=== PATIENT | male | born 1965 | race Caucasian/White ===

== ENCOUNTER 2024-10-31 11:54 | Emergency (ER) | payer OTHER, SELFPAY ==
[2024-10-31 12:06] VITALS: BP 153/74; PULSE 32; RESP 16; TEMP 36.6; O2SAT 100
--- NOTE | 2024-10-31 12:11 | ECG_ITS ---
Test Date: 2024-10-31 12:19:10 Measurements Intervals Philipp Rate: 36 P: 0 CT: 0 QRS: -68 QRSD: 182 T: 4 QT: 478 QTc: 374 Interpretive Statements SINUS BRADYCARDIA WITH 2ND DEGREE AV BLOCK, MOBITZ TYPE II RIGHT BUNDLE BRANCH BLOCK [120+ ms QRS DURATION, UPRIGHT V1, 40+ ms S IN I/aVL/V4/V5/V6] LEFT ANTERIOR FASCICULAR BLOCK [QRS AXIS <= -45, QR IN I, RS IN II] POSSIBLE SEPTAL MYOCARDIAL INFARCTION [30 ms Q WAVE IN V1/V2], OF INDETERMINATE AGE MARKED T-WAVE ABNORMALITY, CONSIDER ANTEROLATERAL ISCHEMIA [-0.5+ mV T WAVE IN I/aVL/V3-V6] WARNING: DATA QUALITY MAY AFFECT INTERPRETATION No previous ECG available for comparison Electronically Signed On 10-31-2024 19:00:30 WEIGHT CALLER by Cain Perez
--- NOTE | 2024-10-31 12:16 | ED.URI ---
HPI - URI/Sore Throat General Stated Complaint: Cough/Congestion Source: patient Mode of arrival: ambulatory Limitations: no limitations History of Present Illness HPI Narrative: 59-year-old male presented for complaint of sore throat, nasal congestion and cough for over 2 weeks. During triage he was noted to have a heart rate of 32. He states he has a history of a bundle branch block. Reports some fatigue. Has started atorvastatin and Synjardy in the last 6 months. He was aware of a heart rate in the 30s based on his home blood pressure machine, but did not contact the PCP. Denies chest pain, dizziness, lethargy, nausea, vomiting or diaphoresis. Related Data Allergies Allergy/AdvReac Type Severity Reaction Status Date / Time No Known Allergies Allergy Mild Verified 02/28/11 12:04 Review of Systems Review of Systems: CONSTITUTIONAL: Denies body aches, fever, chills, or sweats. EYES: Denies visual changes, redness, or discharge. ENT: reports rhinorrhea, congestion, denies sore throat, or otalgia. CARDIOVASCULAR: Denies chest pain, palpitations, or edema. RESPIRATORY: Reports cough Denies dyspnea. GASTROINTESTINAL: Denies abdominal pain, nausea, vomiting, or diarrhea. SKIN: Denies rash MUSCULOSKELETAL: Denies back pain, joint pain, or myalgia. NEUROLOGIC: Denies headache, numbness, tingling, or weakness. PSYCH: Denies depression or anxiety. All systems reviewed & are unremarkable except as noted in HPI and below PMFSH Past Medical History Medical History Diabetes Comments At time of signature, I have reviewed and agree with nursing past medical, surgical, social and family history unless otherwise noted. Please see nursing chart for further information. There is no relevant family history pertinent to the presenting complaint Exam Narrative: GENERAL: Well-appearing EYES: EOMI. No redness or drainage. Conjunctivae normal. ENT: Mucous membranes pink and moist. CHEST: No respiratory distress. Clear to auscultation. HEART: bradycardic, regular. No murmur appreciated. EXTREMITIES: Normal range of motion. No edema. SKIN: Warm, dry, no rash. Capillary refill normal. Normal skin turgor. NEURO: No focal deficits. Alert and oriented x3. Gait steady. PSYCH: Normal affect. Course Course Emergency Course: Patient is aware of diagnosis, understands and agrees to treatment plan. Anticipatory guidance given. Patient agrees to follow-up as directed and is aware of reasons to seek care at the emergency department. Portions of this record may have been created with voice recognition software Level of Care: Express Care Visit Vital Signs Vital signs: Vital Signs Temperature 98 F 10/31/24 12:06 Pulse Rate 32 L 10/31/24 12:06 Respiratory Rate 16 10/31/24 12:06 Blood Pressure 153/74 H 10/31/24 12:06 Pulse Oximetry 100 10/31/24 12:06 Oxygen Delivery Room Air 10/31/24 12:06 Temperature 98 F 10/31/24 12:06 Pulse Rate 32 L 10/31/24 12:06 Respiratory Rate 16 10/31/24 12:06 Blood Pressure 153/74 H 10/31/24 12:06 Pulse Oximetry 100 10/31/24 12:06 Oxygen Delivery Room Air 10/31/24 12:06 MDM - URI/Sore Throat MDM Narrative Medical decision making narrative: discussed EKG with patient, advised ER transfer. Requests [facility]. Differential Diagnosis Differential diagnosis: Likely other (STEMI, AAA, PE, pneumothorax, cardiac tamponade, esophageal rupture, pneumonia, GERD, musculoskeletal pain, endocarditis, pericarditis, medication induced bradycardia. ) ECG Data EKG #1: Attestation: I personally reviewed and interpreted this ECG as follows: (SB 36; 2nd degree Type 2 heart block ) ECG completion date: 10/31/24 ECG completion time: 12:19 Prior ECG tracings: not available for review EKG Interpretation: bradycardia (2nd degree block) Discharge Plan Discharge Clinical Impression: Bradycardia Patient Disposition: Acute Care Hospital Condition: Stable Patient Language: Martiniquais Follow-up/Referrals: PHYSICIAN NOT ON STAFF,NONSTAFF [Primary Care Provider] - Time of Disposition: 12:37
== END 2024-10-31 12:40 | disposition short-term general hospital (02) ==
PROVIDERS: Emergency Provider Nurse Practitioner Family
DX: R00.1 Bradycardia, unspecified (principal); E11.9 Type 2 diabetes mellitus without complications
CPT/HCPCS: 93005; 99202; 99203; G0463

== ENCOUNTER → 2025-04-23 15:19 | Outpatient (REF) | payer OTHER, SELFPAY ==
--- NOTE | 2025-04-23 15:19 | S_PTH ---
PATIENT: Brenden Romo LOC: [facility] U#:[id number] AGE/SX: 60/M ROOM: RE04/23/[address]: Pati Payne MD : [id number] BED: DIS: SPEC #: [id number] RECD: 04/24/25 06:56 STATUS: JACK WANG #: [id number] YAMINI: 04/23/25 15:[address]: Pati Payne DEPT: [facility] Surgical RECD BY: Wilda Chapman ENTERED: 04/24/25 06:56 SP TYPE: Surgical OTHR DR: PHYSICIAN NOT ON STAFF Tissues: A - Cyst Procedures: Hematoxylin and Eosin Stain Gross and Microscopic Level 4
--- OUTSIDE RECORDS SUMMARY | 2025-04-23 15:21 | XMS_ITS ---
Author Organization [facility] Address [address] [place] [address] Care Team Providers Care Seed Pot[employer] Arranger Name Role Phone Leonel Magaña NP Primary Care Provider [phone] [place] Catherine Unavailable [phone] Active Problems Problem Noted Date Diagnosed Date Second-degree heart block 03/06/2025 Assessment & Plan (03/06/2025 3:59 PM CDT): -Symptomatic 2:1 AV block s/p [employer]onic dual chamber pacemaker 11/12/2024 -Pacemaker dependent, UNDERGROUND MINER 100%, normal LVEF 10/2024. NYHA class I symptoms. Pacemaker 03/06/2025 Assessment & Plan (03/06/2025 3:59 PM CDT): -Dual chamber pacemaker is functioning appropriately as programmed -Lead impedances, sensing, and thresholds are stable -No programming changes -Continue remote monitoring quarterly -Follow up in 1 year for device check Chest pain, unspecified type 11/06/2024 DM type 2 with diabetic mixed hyperlipidemia Mixed hyperlipidemia 05/04/2024 Complex tear of medial meniscus of left knee Post-surgical hypothyroidism 11/12/2019 Assessment & Plan (02/07/2023 12:40 PM CDT): Continue levothyroxine 200mcgs daily Repeat TSH, FT4 and BMP today Assessment & Plan (01/20/2021 2:21 PM DIRECTOR OF DISTRICT OFFICE): Continue current levothyroxine dose. Will check thyroid function test and adjust levothyroxine dose accordingly. TSH goal lower normal Assessment & Plan (11/12/2019 10:19 AM DIRECTOR OF DISTRICT OFFICE): Continue current levothyroxine dose. Will check thyroid function test and adjust levothyroxine dose accordingly. TSH goal lower normal History of thyroid cancer 10/09/2018 Assessment & Plan (02/07/2023 12:41 PM CDT): Repeat TG today Repeat neck imaging in 2-3 years (last in 2019) Assessment & Plan (01/20/2021 2:21 PM DIRECTOR OF DISTRICT OFFICE): No evidence of tumor recurrence on biochemical and radiological data so far Will plan follow-up with thyroid function test with a TSH goal lower normal. Biochemical evaluation with thyroid tumor markers. neck ultrasound extended/as needed If above are in acceptable range, will plan follow-up on yearly basis Assessment & Plan (11/12/2019 10:19 AM DIRECTOR OF DISTRICT OFFICE): No evidence of tumor recurrence on biochemical and radiological data so far followed by radiation oncology. Will plan follow-up with thyroid function test with a TSH goal lower normal. Biochemical evaluation with thyroid tumor markers. We will also obtain neck ultrasound for evaluation of the neck. If above are in acceptable range, will plan follow-up on yearly basis Malignant neoplasm of thyroid gland 10/05/2010 Current Treatment and Therapy Plans No current plan information found. Past Treatment and Therapy Plans No past plan information found. Lifetime Dose Tracking * Chemical Lifetime Dose Automatic Entry Manual Entr y Air kerma at the reference point (Ka,r) 7.83 mGy 0 mGy 7.83 mGy DLP 1,676 mGycm 1,676 mGycm 0 mGycm
--- OUTSIDE RECORDS SUMMARY | 2025-04-23 15:21 | XMS_ITS | Clinical Summary ---
Author Organization [facility] Address [address] [place] [address] Care Team Providers Care Branch General Manager Name Role Phone Leonel Magaña NP Primary Care Provider [phone] [place] Catherine Unavailable [phone] Allergies No known active allergies Medications esomeprazole DR (NexIUM) 20 mg capsule Take 1 capsule (20 mg total) by mouth 2 (two) times a day Active acetaminophen (TYLENOL 8 HOUR ORAL) Take by mouth 500 mg prn Active calcium carbonate-vitami n D3 (CALTRATE 600 + D) 1500 mg (600 mg elemental) -400 units per tablet Take 1 tablet by mouth daily Active multivit-min/fol ic/vit K/lycop (MEN'S MULTIVITAMIN ORAL) Take by mouth daily Active ascorbic acid (VITAMIN C) 500 mg tablet,chewable Take 1 tablet/chew tab (500 mg total) by mouth 2 (two) times a day 60 tablet/chew tab 03/29/20 24 Active cholecalciferol (VITAMIN D-3) 2000 unit capsule Take 1 capsule (2,000 Units total) by mouth daily 30 capsule 03/29/20 24 Active calcium-vitamin D3-vitamin K 500 mg-1,000 unit-40 mcg tablet,chewable as directed Orally Active empagliflozin-me tformin 10-1,000 mg tablet, IR & ER, biphasic 24hrIndications: type 2 diabetes mellitus Take 1 tablet by mouth daily 30 tablet 11 05/07/20 24 Active rosuvastatin (CRESTOR) 10 mg tablet Take 1 tablet (10 mg total) by mouth daily 30 tablet 11 05/07/20 24 025 Active blood-glucose sensor (Circular Energy G7 Sensor) device Will use 3 sensors per month to check blood sugar continuously . 3 each 05/07/20 24 Active levothyroxine (SYNTHROID) 200 mcg tablet Take 1 tablet by mouth 6 days/week and take 2 tablets on 1 day/week. Total of 8 tablets weekly 104 tablet 3 03/28/20 25 Active levothyroxine (SYNTHROID) 200 mcg tablet Take 1 tablet by mouth once daily 90 tablet 02/13/20 24 025 Discontinued levothyroxine (SYNTHROID) 200 mcg tablet Take 1 tablet by mouth 6 days/week and take 2 tablets on 1 day/week. 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 NYHA class I [...] today Assessment & Plan (01/20/2021 2:21 PM SUPERVISOR DRYING): Continue current levothyroxine dose. Will check thyroid function test and adjust levothyroxine dose accordingly. TSH goal lower normal Assessment & Plan (11/12/2019 10:19 AM SUPERVISOR DRYING): Continue current levothyroxine dose. Will check thyroid function test and adjust levothyroxine dose accordingly. TSH goal lower normal History of thyroid cancer 10/09/2018 Assessment & Plan (02/07/2023 12:41 PM CDT): Repeat TG today Repeat neck imaging in 2-3 years (last in 2019) Assessment & Plan (01/20/2021 2:21 PM SUPERVISOR DRYING): No evidence of tumor recurrence on biochemical and radiological data so far Will plan follow-up with thyroid function test with a TSH goal lower normal. Biochemical evaluation with thyroid tumor markers. neck ultrasound extended/as needed If above are in acceptable range, will plan follow-up on yearly basis Assessment & Plan (11/12/2019 10:19 AM SUPERVISOR DRYING): No evidence of tumor recurrence on biochemical [...] basis Malignant neoplasm of thyroid gland 10/05/2010 Encounters Date Type Department Care Team Description 03/18/2025 Orders Only [facility] [place] [address] [place] [id number] Scanning, Provider 03/06/2025 3:30 PM CDT Office Visit [facility] [address] [place] [address] 8th [place] [address] [place] [address] Nimisha Rodriguez, AMY Second-degree heart block (Primary Dx); Pacemaker 03/06/2025 3:00 PM CDT Ancillary Procedure [facility] [address] [place] [address] 8th [place] [address] [place] [address] Second degree AV block (Primary Dx); Fitting or adjustment of cardiac pacemaker; Bradycardia from Last 3 Months Surgical History Surgery Date Site/Laterality Comments TONSILLECTOMY Bilateral THYROIDECTOMY 08/21/2002 - 09/20/2002 BACK SURGERY 11/21/2015 - 11/20/2016 herniated disk repaired in the lumbar area REVISION OF SCAR from the thyroid surgery on the neck Medical History Medical History Date Comments Thyroid cancer (HCC) HLD (hyperlipidemia) HTN (hypertension) GERD (gastroesophageal reflux disease) BBB (bundle branch block) Allergic rhinitis PONV (postoperative nausea and vomiting) Prediabetes Social History Tobacco Use Types Packs/Day Years Used Date Smoking Tobacco: Never Smokeless Tobacco: Never Tobacco Cessation:Counseling Given: Not Answered Alcohol Use Standard Drinks/Week Comments Yes 0 (1 standard drink = 0.6 oz pur e alcohol) [facility] Utilities Answer Date Recorded In the past 12 months has [employer] electric, gas, oil, or water company threatened to shut off services in your home? No 11/15/2024 Social Connection and Isolat ion Panel [NHANES] Answer Date Recorded In a typical week, how many times do you talk on the phone with family, friends, or neighbors? More than three times a week 11/15/2024 How often do you get togethe r with friends or relatives? Once a week 11/15/2024 How often do you attend chur ch or orthodox services? Never 11/15/2024 Do you belong to any clubs o r organizations such as confucianist groups, unions, fraternal or athletic groups, or school groups? Yes 11/15/2024 How often do you attend meet ings of the clubs or organizations you belong to? More than 4 times per year 11/15/2024 Are you , , di vorced, , never , or living with a partner? 11/15/2024 AUDIT-C Answer Date Recorded Q1: How often do you have a drink containing alc ohol? 2-4 times a month 03/29/2024 Q2: How many drinks containi ng alcohol do you have on a typical day when you are drinking? 1 or 2 03/29/2024 Frequency of Binge Drinking Not on file 07/2024 Overall Financial Resource Strain (CARDIA) Answe r Date Recorded How hard is it for you to pa y for the very basics like food, housing, medical care, and heating? Not hard at all 11/15/2024 Hunger Vital Sign Answer Date Recorded Within the past 12 months, y ou worried that your food would run out before you got the money to buy more. Never true 11/15/20 24 Within the past 12 months, t he food you bought just didn't last and you didn't have money to get more. Never true 11/15/2024 PRAPARE - Transportation Answer Date Re corded In the past 12 months, has l ack of transportation kept you from medical appointments or from getting medications? No 10/22 In the past 12 months, has l ack of transportation kept you from meetings, work, or from getting things needed for daily living? No 11/15/2024 Housing Stability Vital Sign Answer Freddy e Recorded In the last 12 months, was t here a time when you were not able to pay the mortgage or rent on time? No 11/15/2024 In the past 12 months, how m any times have you moved where you were living? 0 11/15/2024 At any time in the past 12 m [facility], were you homeless or living in a residential (including now)? No 11/15/2024 Personal Safety Answer Date Recorded Have you ever been in or are you currently in a harmful physical or emotional relationship or is someone making you feel afraid or unsafe? Denies 11/06/2024 Sex and Gender Information Value Date Recorded Sex Assigned at Not on file Legal Sex Male 4:56 PM SUPERVISOR DRYING Gender Identity Male 02/29/2020 3:34 PM CDT Sexual Orientation Not on file Obstetrics History Last Filed Vital Signs Vital Sign Reading Time Taken Comments Blood Pressure 128/78 03/06/2025 3:25 PM CDT Pulse 61 03/06/2025 3:25 PM CDT Temperature 36.5 C (97.7 F) 11/13/2024 7:54 AM SUPERVISOR DRYING Respiratory Rate 18 11/13/2024 7:54 AM SUPERVISOR DRYING Oxygen Saturation 96% 03/06/2025 3:25 PM CDT Inhaled Oxygen Concentration - - Weight 85.6 kg (188 lb 12.8 oz) 03/06/2025 3:25 PM CDT Height 175.3 cm (5' 9) 03/06/2025 3:25 PM CDT Body Mass Index 27.88 03/06/2025 3:25 PM CDT Plan of Treatment Health Maintenance Due Date Last Done Comments Depression Screening 1963 Hepatitis C Screening 1963 Prostate Cancer Screening-PSA 1963 Dilated Eye Exam 1963 Hepatitis B Screening 1981 Regular Well Visit/Exam 18-64 1981 Pneumococcal vaccine <65 (1 of 2 - PCV) 1982 Zoster Vaccine (1 of 2) 2013 DTaP/Tdap/Td Vaccine (2 - Td or Tdap) 09/29/2022 09/29/2012 Covid-19 Vaccine (2 - 2023-2 5 season) 2024 01/23/2021 Albumin Creatinine Ratio, Urine 05/07/2025 Foot Exam 05/07/2025 05/07/2024 Hemoglobin A1C 05/07/2025 11/06/2024, 08/13/2024 Colon Cancer Screening-Colonoscopy 06/04/2025 06/04/2015 Influenza Vaccine (Season Ended) 2025 Lipid Panel 11/08/2025 11/08/2024, 11/07/2024 eGFR 11/12/2025 11/12/2024, 10/22, 11/08/2024, Additional history exists Colon Cancer Screening-CT Colonography Discontinued 06/04/2015 Colon Cancer Screening-DNA Stool Discontinued 06/04/20 Colon Cancer Screening-FIT Discontinued 06/04/2015 Colon Cancer Screening-Sigmoidoscopy Discontinued 06/04/2015 Medical Devices Implanted Type Area Liquid Natural Gas Plant Operator Device Identifier Shelf Expiration Date Model / Serial / Lot Medtronic Inc Capsurefix Novus 6.2fr 2mm 58cm Bipolar Screw In Implantable 5076-58 - [id number] - [id number] Implanted:Qty: 1 on 11/12/2024 by Brenden Brown MD PhD at [facility] Lead Medtronic Inc 08/03/2026 5076-58 / [id number] / Medtronic Inc Capsurefix Novus 6.2fr 2mm 52cm Bipolar Screw In Implantable Latex Free 5076-52 - [id number] - [id number] Implanted:Qty: 1 on 11/12/2024 by Brenden Brown MD PhD at [facility] Lead Medtronic Inc 08/16/2026 5076-52 / [id number] / Medtronic Inc [place] S Mri Surescan 50.8x46.6mm 2 Chamber 7.4mm Pacemaker 22.5gm [id number] - [id number] - [id number] Implanted:Qty: 1 on 11/12/2024 by Brenden Brown MD PhD at [facility] Pacemaker Medtronic Inc 01/18/2026 [id number] / [id number] / Procedures Procedure Name Priority Date/Time Associated Diagnosis Comments DEVICE CHECK - REMOTE 03/17/2025 12:25 AM CDT DEVICE CHECK - IN OFFICE Routine 03/06/2025 2:38 PM CDT Fitting or adjustment of cardiac pacemaker Second degree AV block Bradycardia EGFR Timed 11/12/2024 11:22 AM SUPERVISOR DRYING LIPID PANEL Routine 11/07/2024 9:20 PM SUPERVISOR DRYING POCT HEMOGLOBIN A1C Routine 11/06/2024 1 0:43 AM SUPERVISOR DRYING 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 Lead impedance, threshold, and RA sensing trends stable and appropriate. No short V-V intervals. Presenting Rhythm (DE) Atrial Sensing-Ventricular Pacing (-CH[employer]IAN [employer]ISTRIES PROFESSOR) --- /CH[employer]RI[employer] PROFESSOR 60s. Arrhythmic events (AE) No new arrhythmic events in monitoring period --- Since 03/06/25: No AHR or VHR episodes. Miscellaneous Observations (MISC) RV pacing > 40% noted --- CH[employer]RI[employer] PROFESSOR 100%. Pt has h/o CHB/High CHRI[employer]IAN [employer]RIES PROFESSOR percentage. Transmission Information (TI) Device Summary Report Follow Up (FU) Patient's primary treating physician will be apprised of findings Procedure Note Asif Waldron MD PhD - 03/18/2025 Interpretation Summary: Battery and Leads (BL) Normal parameters noted on battery and lead(s) --- 13.1 yrs remaininglongevity. Lead impedance, threshold, and RA sensing trends stable andappropriate. No short V-V intervals. Presenting Rhythm (DE) Atrial Sensing-Ventricular Pacing (-CH[employer]IAN [employer]ISTRIES PROFESSOR) --- /CH[employer]RIES PROFESSOR 60s. Arrhythmic events (AE) No new arrhythmic events in monitoring period --- Since 03/06/25: No AHRor VHR episodes. Miscellaneous Observations (MISC) RV pacing > 40% noted --- [employer] PROFESSOR 100%. Pt has h/o CHB/High CH[employer]IAN [employer]RIES PROFESSOR percentage. Transmission Information (TI) Device Summary Report Follow Up (FU) Patient's primary treating physician will be apprised of findings Provider Scanning [facility] PROCEDURES Final Result * DEVICE CHECK - IN OFFICE (03/06/2025 2:38 PM CDT) Anatomical Region Laterality Modality Other 03/06/2025 2:00 AM CDT Narrative 03/08/2025 10:59 AM CDT Interpretation Summary: Battery and Leads (BL) Normal parameters noted on battery and lead(s) --- Estimated battery longevity 13.2 years. Presenting Rhythm (DE) Atrial Sensing-Ventricular Pacing (-CH[employer]IAN [employer]ISTRIES PROFESSOR) --- /CH[employer]RIES PROFESSOR 72 bpm. Underlying 75bpm/ VS 35 bpm. Heart block. Arrhythmic events (AE) No new arrhythmic events in monitoring period Transmission Information (TI) Device Summary Report Procedure Note Brenden Brown MD PhD - 03/08/2025 Interpretation Summary: Battery and Leads (BL) Normal parameters noted on battery and lead(s) --- Estimated batterylongevity 13.2 years. Presenting Rhythm (DE) Atrial Sensing-Ventricular Pacing (-CHRI[employer]IAN MINISTRIES PROFESSOR) --- /CHRI[employer]ISTRIES PROFESSOR 72 bpm. Underlying [id number]/ VS 35 bpm. Heart block. Arrhythmic events (AE) No new arrhythmic events in monitoring period Transmission Information (TI) Device Summary Report us Asif Waldron MD PhD [facility] PRO CEDURES Final Result * eGFR (11/12/2024 11:22 AM SUPERVISOR DRYING) eGFR 84 >=60 mL/min/1. 73 m2 Comment: Interpretive Data Reference Interval Normal >/= 90 mL/min/1.73m2 Mildly decreased* 60 - 89 mL/min/1.73m2 Mildly to moderately decreased 45 - 59 mL/min/1.73m2 Moderately to severely decreased 30 - 44 mL/min/1.73m2 Severely decreased 15 - 29 mL/min/1.73m2 Kidney Failure < 15 mL/min/1.73m2 *Relative to young adult level Estimated glomerular filtration rate is determined by the 2020 CKD-EPI equation recommended by the National Kidney Foundation (A Unifying Approach to GFR Estimation: Recommendations of the NKF-ASK Task Force on Reassessing the Inclusion of Race in Diagnosing Kidney Disease, JASN 202). The CKD-EPI equation should not be used for patients with unstable renal function and has not been validated in children and those over 70. Current interpretive data was last reviewed 2021. Blood 11/12/2024 11:2 2 AM SUPERVISOR DRYING 11/12/2024 12:48 PM SUPERVISOR DRYING us Giovany Hendrix MD LAB BLOOD ORDERABLES F inal Result [facility] Department [place] [address] * (ABNORMAL) Lipid panel (11/07/2024 9:20 PM SUPERVISOR DRYING) Cholesterol 146 30 - 199 mg/dL Comment: Interpretive Data Ages < or = 19 years Acceptable: <170 mg/dL Borderline high: 170-199 mg/dL High: >or= 200 mg/dL Ages > or = 20 years Desirable: <200 mg/dL Borderline high: 200-239 mg/dL High: >or= 240 mg/dL Literature References: 1. Expert Panel on Integrated Guidelines for Cardiovascular Health and Risk Reduction in Children and Adolescents. Pediatrics 2011;128:S213 2. NCEP Expert Panel. Circulation 2004;110:227 Current Interpretive Data was last revised on 2018. Triglycerides 78 <=149 mg/dL [facility] Comment: Interpretive Data Ages < or = 9 years Acceptable: <75 mg/dL Borderline high: 75-99 mg/dL High: >or= 100 mg/dL Ages 10 to 20 years Acceptable: <90 mg/dL Borderline high: 90-129 mg/dL High: >or= 130 mg/dL Ages > or = 20 years Desirable: <150 mg/dL Borderline high: 150-199 mg/dL High: 200-499 mg/dL Very high: >or= 499 mg/dL Literature References: 1. Expert Panel on Integrated Guidelines for Cardiovascular Health and Risk Reduction in Children and Adolescents. Pediatrics 2011;128:S213 2. NCEP Expert Panel. Circulation 2004;110:227 Current Interpretive Data was last revised on 2018. HDL 35(L) >=40 mg/dL [facility] Comment: Interpretive Data Ages < or = 19 years Acceptable: >45 mg/dL Borderline low: 40-45 mg/dL Low: <40 mg/dL Ages > or = 20 years Desirable: >or= 60 mg/dL Low: <40 mg/dL Literature References: 1. Expert Panel on Integrated Guidelines for Cardiovascular Health and Risk Reduction in Children and Adolescents. Pediatrics 2011;128:S213 2. NCEP Expert Panel. Circulation 2004;110:227 Current Interpretive Data was last revised on 2018. LDL, calculated 96 <=129 mg/dL [facility] Comment: Interpretive Data Ages < or = 19 years Acceptable: <110 mg/dL Borderline high: 110-129 mg/dL High: >or= 130 mg/dL Ages > or = 20 years Optimal: <100 mg/dL Near optimal: 100-129 mg/dL Borderline high: 130-159 mg/dL High: >160 mg/dL Calculated using the Clarke LDL-C estimating equation. This equation was implemented on 2024. Prior to this date LDL-C was estimated using the Friedewald equation. Literature References: 1. Expert Panel on Integrated Guidelines for Cardiovascular Health and Risk Reduction in Children and Adolescents. Pediatrics 2011;128:S213 2. NCEP Expert Panel. Circulation 2004;110:227 3. Vince Guzman et al. NOY Cardiol. 2019March 21;5(5):540-548. doi: 10.1001/jamacardio.2020.0013 Current Interpretive Data was last revised on 2024. Non-HDL Cholesterol 111 mg/dL [facility] Comment: Interpretive Data Ages < or = 19 years Acceptable: <120 mg/dL Borderline high: 120-144 mg/dL High: >145 mg/dL Ages > or = 20 years When triglycerides are >200 mg/dL, Non-HDL cholesterol is a secondary target of therapy with treatment goals that are 30 mg/dL greater than the LDL cholesterol target. Literature References: 1. Expert Panel on Integrated Guidelines for Cardiovascular Health and Risk Reduction in Children and Adolescents. Pediatrics 2011;128:S213 2. NCEP Expert Panel. Circulation 2004;110:227 Current Interpretive Data was last revised on 2018. Chol/HDL ratio 4 [facility] Blood 11/07/2024 9:20 PM SUPERVISOR DRYING 11/07/2024 9:54 PM SUPERVISOR DRYING Giovany Hendrix MD LAB BLOOD ORDERABLES F inal Result [facility] [place] [address] * POCT hemoglobin A1c (11/06/2024 10:43 AM SUPERVISOR DRYING) Hemoglobin A1C, POC 6.4 4.0 - 5.6 % Blood 11/06/2024 10:4 3 AM SUPERVISOR DRYING Grzegorz Randhawa MD POINT OF CARE TEST ORDERABLES Fi nal Result * Albumin Creatinine Ratio, Urine (05/07/2024 9:57 AM CDT) Albumin Ur 12.5 mg/L Comment: Interpretive Data No reference range established. Current interpretive data was last revised 2019. Creatinine Ur 71.8 mg/dL [facility] Comment: Interpretive Data No reference range established. Current interpretive data was last revised 2019. Albumin Creatinine Ratio, Ur 17 1 - 29 mg/g [facility] Urine 05/07/2024 9:57 AM CDT 05/07/2024 10:38 AM CDT Cassidy Contreras RETAIL PRODUCT DEMO SPECIALIST LAB URINE ORDERABLES Christine reyna Result [facility] [place] [address] * COLONOSCOPY REPORT (06/04/2015) Anatomical Region Laterality Modality Other Narrative 06/04/2015 Ordered by an unspecified provider. Historical Provider GI PROCEDURE ORDERABLES F inal Result from Last 3 Months or Most Recently Relevant to Health Maintenance Insurance [facility] ACCESS Member Subscriber Plan / Payer (Ef fective 2018-Present) Name:Brenden Romo Relation to Subscriber:Self Name:BRENDEN ROMO Payer ID:[id number] (NAIC) Type: Play Meg[employer] Address: [facility] [address] CHOICE PLUS [facility] HMO [facility] CHOICE PLUS [facility] CHOICE PLUS Advance Directives For more information, please contact: [phone] * Full Code (Latest Code Status on File) Date Activated Date Inactivated Comments 11/06/2024 6:04 PM 11/13/2024 5:58 PM Care Teams Branch General Manager Relationship Specialty Start Date End Date Leonel Magaña NP PCP - General Nurse Practitioner 05/31/23 Odessa Catherine PA [address] [place] [address] DR PATTERSON [address] [place] [id number] Orthopedic Surgery 03/29/24
--- OUTSIDE RECORDS SUMMARY | 2025-04-23 15:21 | XMS_ITS | Referral Summary ---
Author Organization [facility] Address [address] [place] [address] Care Team Providers Care Post Splitter Name Role Phone Leonel Magaña NP Primary Care Provider [phone] Odessa Catherine Unavailable [phone] Encounters Date Type Department Care Team Description 03/18/2025 Orders Only [facility] [place] [address] [place] [id number] Scanning, Provider 03/06/2025 3:30 PM CDT Office Visit [facility] 8th [place] [address] [place] [phone] Nimisha Rodriguez NP Second-degree heart block (Primary Dx); Pacemaker 03/06/2025 3:00 PM CDT Ancillary Procedure [facility] 8th [place] [address] [place] [phone] Second degree AV block (Primary Dx); Fitting or adjustment of cardiac pacemaker; Bradycardia from Last 3 Months Allergies No known active allergies Medications esomeprazole [...] mg total) by mouth daily 30 tablet 05/07/20 24 025 Active blood-glucose sensor (Dexcom G7 Sensor) device Will use 3 sensors [...] Medtronic dual chamber pacemaker 11/12/2024 -Pacemaker dependent, ASPHALT PAVER 100%, normal LVEF 10/2024. NYHA class I [...] today Assessment & Plan (01/20/2021 2:21 PM SHOTWELD OPERATOR): Continue current levothyroxine dose. Will check thyroid function test and adjust levothyroxine dose accordingly. TSH goal lower normal Assessment & Plan (11/12/2019 10:19 AM SHOTWELD OPERATOR): Continue current levothyroxine dose. Will check thyroid function test and adjust levothyroxine dose accordingly. TSH goal lower normal History of thyroid cancer 10/09/2018 Assessment & Plan (02/07/2023 12:41 PM CDT): Repeat TG today Repeat neck imaging in 2-3 years (last in 2019) Assessment & Plan (01/20/2021 2:21 PM SHOTWELD OPERATOR): No evidence of tumor recurrence on biochemical and radiological data so far Will plan follow-up with thyroid function test with a TSH goal lower normal. Biochemical evaluation with thyroid tumor markers. neck ultrasound extended/as needed If above are in acceptable range, will plan follow-up on yearly basis Assessment & Plan (11/12/2019 10:19 AM SHOTWELD OPERATOR): No evidence of tumor recurrence on biochemical [...] basis Malignant neoplasm of thyroid gland 10/05/2010 Social History Tobacco Use Types Packs/Day Years Used Date Smoking Tobacco: Never Smokeless Tobacco: Never Tobacco Cessation:Counseling Given: Not Answered Alcohol Use Standard Drinks/Week Comments Yes 0 (1 standard drink = 0.6 oz pur e alcohol) [facility] Utilities Answer Date Recorded In the past 12 months has th e electric, gas, oil, or water company threatened [...] often do you attend chur ch or baptism services? Never 11/15/2024 Do you belong to any clubs o r organizations such as jehovah's witness groups, unions, fraternal or athletic groups, or [...] any time in the past 12 m [facility], were you homeless or living in a senior living (including now)? No 11/15/2024 Personal Safety Answer Date Recorded Have you ever been in or are you currently in a harmful physical or emotional relationship or is someone making you feel afraid or unsafe? Denies 11/06/2024 Sex and Gender Information Value Date Recorded Sex Assigned at Not on file Legal Sex Male 4:56 PM SHOTWELD OPERATOR Gender Identity Male 02/29/2020 3:34 PM CDT Sexual Orientation Not on file Last Filed Vital Signs Vital Sign Reading Time Taken Comments Blood Pressure 128/78 03/06/2025 3:25 PM CDT Pulse 61 03/06/2025 3:25 PM CDT Temperature 36.5 C (97.7 F) 11/13/2024 7:54 AM SHOTWELD OPERATOR Respiratory Rate 18 11/13/2024 7:54 AM SHOTWELD OPERATOR Oxygen Saturation 96% 03/06/2025 3:25 PM CDT Inhaled Oxygen Concentration - - Weight 85.6 kg (188 lb 12.8 oz) 03/06/2025 3:25 PM CDT Height 175.3 cm (5' 9) 03/06/2025 3:25 PM CDT Body Mass Index 27.88 03/06/2025 3:25 PM CDT Plan of Treatment Not on file Medical Devices Implanted Type Area Scientific Advisor Device Identifier Shelf Expiration Date Model / Serial / Lot Medtronic Inc Capsurefix Novus 6.2fr 2mm 58cm Bipolar Screw In Implantable 5076-58 - [id number] - [id number] Implanted:Qty: 1 on 11/12/2024 by Brenden Brown MD PhD at [facility] Lead Medtronic Inc 08/03/2026 5076-58 / [id number] / Medtronic Inc Capsurefix Novus 6.2fr 2mm 52cm Bipolar Screw In Implantable Latex Free 5076-52 - [id number] - [id number] Implanted:Qty: 1 on 11/12/2024 by Brenden Brown MD PhD at [facility] Lead Medtronic Inc 08/16/2026 5076-52 / [id number] / Medtronic Inc [place] S Mri Surescan 50.8x46.6mm 2 Chamber 7.4mm Pacemaker 22.5gm [id number] - [id number] - [id number] Implanted:Qty: 1 on 11/12/2024 by Brenden Brown MD PhD at [facility] Pacemaker Medtronic Inc 01/18/2026 [id number] / [id number] / Procedures Procedure Name Priority Date/Time Associated Diagnosis Comments DEVICE CHECK - REMOTE 03/17/2025 12:25 AM CDT DEVICE CHECK - IN OFFICE Routine 03/06/2025 2:38 PM CDT Fitting or adjustment of cardiac pacemaker Second degree AV block Bradycardia EGFR Timed 11/12/2024 11:22 AM SHOTWELD OPERATOR LIPID PANEL Routine 11/07/2024 9:20 PM SHOTWELD OPERATOR POCT HEMOGLOBIN A1C Routine 11/06/2024 1 0:43 AM SHOTWELD OPERATOR DM type 2 with diabetic mixed hyperlipidemia [...] appropriate. No short V-V intervals. Presenting Rhythm (ID) Atrial Sensing-Ventricular Pacing (-ASPHALT PAVER) --- /ASPHALT PAVER 60s. Arrhythmic events (AE) No new arrhythmic events in monitoring period --- Since 03/06/25: No AHR or VHR episodes. Miscellaneous Observations (MISC) RV pacing > 40% noted --- ASPHALT PAVER 100%. Pt has h/o CHB/High ASPHALT PAVER percentage. Transmission Information (TI) Device Summary Report Follow Up (FU) Patient's primary treating physician will be apprised of findings Procedure Note Asif Waldron MD PhD - 03/18/2025 Interpretation Summary: Battery and Leads (BL) Normal parameters noted on battery and lead(s) --- 13.1 yrs remaininglongevity. Lead impedance, threshold, and RA sensing trends stable andappropriate. No short V-V intervals. Presenting Rhythm (ID) Atrial Sensing-Ventricular Pacing (-ASPHALT PAVER) --- /ASPHALT PAVER 60s. Arrhythmic events (AE) No new arrhythmic events in monitoring period --- Since 03/06/25: No AHRor VHR episodes. Miscellaneous Observations (MISC) RV pacing > 40% noted --- ASPHALT PAVER 100%. Pt has h/o CHB/High ASPHALT PAVER percentage. Transmission Information (TI) Device Summary Report [...] Estimated battery longevity 13.2 years. Presenting Rhythm (ID) Atrial Sensing-Ventricular Pacing (-ASPHALT PAVER) --- /ASPHALT PAVER 72 bpm. Underlying 75bpm/ VS 35 bpm. Heart block. Arrhythmic events (AE) No new arrhythmic events in monitoring period Transmission Information (TI) Device Summary Report Procedure Note Brenden Brown MD PhD - 03/08/2025 Interpretation Summary: Battery and Leads (BL) Normal parameters noted on battery and lead(s) --- Estimated batterylongevity 13.2 years. Presenting Rhythm (ID) Atrial Sensing-Ventricular Pacing (-ASPHALT PAVER) --- /ASPHALT PAVER 72 bpm. Underlying MF23psl/ VS 35 bpm. Heart block. Arrhythmic events (AE) No new arrhythmic events in monitoring period Transmission Information (TI) Device Summary Report us Asif Waldron MD PhD [facility] PRO CEDURES Final Result * eGFR (11/12/2024 11:22 AM SHOTWELD OPERATOR) eGFR 84 >=60 mL/min/1. 73 m2 Comment: [...] reviewed 2021. Blood 11/12/2024 11:2 2 AM SHOTWELD OPERATOR 11/12/2024 12:48 PM SHOTWELD OPERATOR us Giovany Hendrix MD LAB BLOOD ORDERABLES F inal Result [facility] Department [place] [address] * (ABNORMAL) Lipid panel (11/07/2024 9:20 PM SHOTWELD OPERATOR) Cholesterol 146 30 - 199 mg/dL Comment: [...] on 2018. Triglycerides 78 <=149 mg/dL [facility] Comment: Interpretive Data Ages < or = [...] on 2018. HDL 35(L) >=40 mg/dL [facility] Comment: Interpretive Data Ages < or = [...] 2018. LDL, calculated 96 <=129 mg/dL [facility] Comment: Interpretive Data Ages < or = 19 years Acceptable: <110 mg/dL Borderline high: 110-129 mg/dL High: >or= 130 mg/dL Ages > or = 20 years Optimal: <100 mg/dL Near optimal: 100-129 mg/dL Borderline high: 130-159 mg/dL High: >160 mg/dL Calculated using the Vince LDL-C estimating equation. This equation was implemented on 2024. Prior to this date LDL-C was estimated using the Friedewald equation. Literature References: 1. Expert Panel on Integrated Guidelines for Cardiovascular Health and Risk Reduction in Children and Adolescents. Pediatrics 2011;128:S213 2. NCEP Expert Panel. Circulation 2004;110:227 3. Vince Guzman et al. NOY Cardiol. 2020 March 21;5(5):540-548. doi: 10.1001/jamacardio.2020.0013 Current Interpretive Data was last revised on 2024. Non-HDL Cholesterol 111 mg/dL [facility] Comment: Interpretive Data Ages < or = [...] last revised on 2018. Chol/HDL ratio [address] [facility] Blood 11/07/2024 9:20 PM SHOTWELD OPERATOR 11/07/2024 9:54 PM SHOTWELD OPERATOR us Giovany Hendrix MD LAB BLOOD ORDERABLES F inal Result [facility] Department [place] [address] * POCT hemoglobin A1c (11/06/2024 10:43 AM SHOTWELD OPERATOR) Hemoglobin A1C, POC 6.4 4.0 - 5.6 % Blood 11/06/2024 10:4 3 AM SHOTWELD OPERATOR Grzegorz Randhawa MD POINT OF CARE TEST ORDERABLES Fi nal Result * Albumin Creatinine Ratio, Urine (05/07/2024 9:57 AM CDT) Albumin Ur 12.5 mg/L Comment: Interpretive Data No reference range established. Current interpretive data was last revised 2019. Creatinine Ur 71.8 mg/dL [facility] Comment: Interpretive Data No reference range established. Current interpretive data was last revised 2019. Albumin Creatinine Ratio, Ur 17 1 - 29 mg/g [facility] Urine 05/07/2024 9:57 AM CDT 05/07/2024 10:38 AM CDT Cassidy Contreras NP LAB URINE ORDERABLES Christine l Result [facility] Department [place] [address] * COLONOSCOPY REPORT (06/04/2015) Anatomical Region Laterality Modality Other Narrative 06/04/2015 Ordered by an unspecified provider. Historical Provider GI PROCEDURE ORDERABLES F inal Result from Last 3 Months or Most Recently Relevant to Health Maintenance Insurance * Guarantor: Brenden Romo Account Type Relation to Patient Date of Phone Billing Address Personal/Family Self 1965 [phone] (Work) [address] [place] [address] [facility] ACCESS Member Subscriber Plan / Payer (Ef fective 2018-Present) Name:Brenden Romo Relation to Subscriber:Self Name:BRENDEN ROMO Payer ID:[id number] (NAIC) Type:[facility] Address: [facility] [id number] CHOICE PLUS PENDING SALE TO [facility] HMO [facility] CHOICE PLUS [facility] CHOICE PLUS Advance Directives For more information, please contact: [phone] * Full Code (Latest Code Status on File) Date Activated Date Inactivated Comments 11/06/2024 6:04 PM 11/13/2024 5:58 PM Care Teams Post Splitter Relationship Specialty Start Date End Date Leonel Magaña NP PCP - General Nurse Practitioner 05/31/23 Odessa Catherine PA [address] [place] [address] [place] [address] Orthopedic Surgery 03/29/24
--- OUTSIDE RECORDS SUMMARY | 2025-04-23 15:21 | XMS_ITS | Clinical Summary ---
Author Organization [facility] Address [address] [place] [address] Phone Care Team Providers Care Courtesy Car Driver Name Role Phone Provider, None Primary Care Provider Unavailabl e Allergies No known active allergies Medications ondansetron (ZOFRAN) 4 MG Tablet Take 1 Tab by mouth every 8 hours as needed for Nausea - 1st line. 10 Tab 11/16/2019 Active Social History Tobacco Use Types Packs/Day Years Used Date Smoking Tobacco: Never Smokeless Tobacco: Never Alcohol Use Standard Drinks/Week Comments Yes 0 (1 standard drink = 0.6 oz pur e alcohol) on occasion Sex and Gender Information Value Date Recorded Sex Assigned at Male 11/02/2023 5:30 PM SECONDARY SET UP MAN Legal Sex Male 12:06 AM CDT Gender Identity Male 11/02/2023 5:30 PM SECONDARY SET UP MAN Sexual Orientation Not on file Last Filed Vital Signs Vital Sign Reading Time Taken Comments Blood Pressure 127/63 11/01/2024 4:40 AM SECONDARY SET UP MAN Pulse 33 11/01/2024 4:40 AM SECONDARY SET UP MAN Temperature 36.4 C (97.6 F) 10/31/2024 1:57 PM SECONDARY SET UP MAN Respiratory Rate 18 11/01/2024 4:30 AM SECONDARY SET UP MAN Oxygen Saturation 95% 11/01/2024 4:40 AM SECONDARY SET UP MAN Inhaled Oxygen Concentration - - Weight 82.6 kg (182 lb) 10/31/2024 1:57 PM SECONDARY SET UP MAN Height 175.3 cm (5' 9) 10/31/2024 1:57 PM SECONDARY SET UP MAN Body Mass Index 26.88 10/31/2024 1:57 PM SECONDARY SET UP MAN Plan of Treatment Health Maintenance Due Date Last Done Comments Hepatitis C Virus (HCV) Screening 1965 TdaP Immunization 1965 Pneumococcal Immunization (5 0+ years) (1 of 2 - PCV) 1982 Colonoscopy 2008 Colorectal Cancer Screening 2008 Cologuard 2013 Immunochemical Fecal Occult Blood 2013 Zoster Immunization (1 of 2) 2013 PSA Discussion 2018 SARS-COV-2 Immunization (2 - 2023- season) 2024 01/23/2021 Influenza Immunization (Seas on Ended) 2025 Respiratory Syncytial Virus (RSV) Immunization (Adult) (1 - 1-dose 75+ series) 2038 Hepatitis B Immunization Aged Out No longer eligible based on patient's age to complete this topic Human Papillomavirus (HPV) Immunization Aged Out No longer eligible b ased on patient's age to complete this topic Meningococcal Immunization (ACWY) Aged Out No longer eligible based on patient's age to complete this topic Rotavirus Immunization Aged Out No lo nger eligible based on patient's age to complete this topic Insurance [facility] Care Teams Courtesy Car Driver Relationship Specialty Start Date End Date Provider, None BE PCP - General 10/31/24
--- OUTSIDE RECORDS SUMMARY | 2025-04-23 15:21 | XMS_ITS | Clinical Summary ---
Author Organization [facility] Address [address] [place] [address] Care Team Providers Care Tombstone Setter Name Role Phone Unavailable Primary Care Provider Unavailabl e Source Comments [facility],non-owned Affiliates and Associated Physician Practices is amultiple site organization consisting of ambulatory clinics and hospital sitesin [place], [place], [place]. This disclosure is being madepursuant to the Care Everywhere program and may not contain all information available regarding this patient. Last updated 18.[employer] [facility] Allergies No known active allergies Medications * Be aware that medications may not be up to date on this document. Alwaysverify current medications with the patient. levothyroxine (Synthroid) 200 MCG tablet Take 1 (one) tablet by mouth daily before breakfast PT stated that on Tuesday mornings he takes 2 pills (400mcg) Active rosuvastatin (Crestor) 10 MG tablet Take 1 (one) tablet by mouth once daily Active esomeprazole (NexIUM) 20 MG capsule Take 1 (one) capsule by mouth daily before breakfast Active Active Problems Problem Noted Date Diagnosed Date Thyroid cancer 11/03/2024 DM II (diabetes mellitus, type II), controlled 1 01/04/2024 GERD (gastroesophageal reflux disease) 4 H/O thyroidectomy 11/03/2024 AV heart block 10/31/2024 Social History Tobacco Use Types Packs/Day Years Used Date Smoking Tobacco: Never Smokeless Tobacco: Never Tobacco Cessation:Counseling Given: Not Answered Alcohol Use Standard Drinks/Week Comments Yes 3 (1 standard drink = 0.6 oz pur e alcohol) occassionally AUDIT-C Answer Date Recorded Q1: How often do you have a drink containing alc ohol? 2-4 times a month 11/01/2024 Q2: How many drinks containi ng alcohol do you have on a typical day when you are drinking? 3 or 4 11/01/2024 Q3: How often do you have si x or more drinks on one occasion? Never 11/01/2024 Overall Financial Resource Strain (CARDIA) Answe r Date Recorded How hard is it for you to pa y for the very basics like food, housing, medical care, and heating? Not hard at all 11/01/2024 [facility] - Occupational Stress Questionnaire Answer Date Recorded Do you feel stress - tense, restless, nervous, or anxious, or unable to sleep at night because your mind is troubled all the time - these days? Not at all 11/01/2024 Hunger Vital Sign Answer Date Recorded Within the past 12 months, y ou worried that your food would run out before you got the money to buy more. Never true 11/01/20 24 Within the past 12 months, t he food you bought just didn't last and you didn't have money to get more. Never true 11/01/2024 PRAPARE - Transportation Answer Date Re corded In the past 12 months, has l ack of transportation kept you from medical appointments or from getting medications? No 10/21 In the past 12 months, has l ack of transportation kept you from meetings, work, or from getting things needed for daily living? No 11/01/2024 Housing Stability Vital Sign Answer Freddy e Recorded In the last 12 months, was t here a time when you were not able to pay the mortgage or rent on time? No 11/01/2024 In the past 12 months, how m any times have you moved where you were living? 0 11/01/2024 At any time in the past 12 m [facility], were you homeless or living in a alf (including now)? No 11/01/2024 Sex and Gender Information Value Date Recorded Sex Assigned at Not on file Legal Sex Male 11:29 AM SQUAD SERGEANT Gender Identity Not on file Sexual Orientation Not on file Last Filed Vital Signs Vital Sign Reading Time Taken Comments Blood Pressure 120/67 11/02/2024 7:31 AM SQUAD SERGEANT Pulse 33 11/02/2024 7:31 AM SQUAD SERGEANT Temperature 36.6 C (97.9 F) 11/02/2024 7:31 AM SQUAD SERGEANT Respiratory Rate 20 11/02/2024 7:31 AM SQUAD SERGEANT Oxygen Saturation 92% 11/02/2024 7:31 AM SQUAD SERGEANT Inhaled Oxygen Concentration - - Weight 84.9 kg (187 lb 4 oz) 11/02/2024 8:15 AM SQUAD SERGEANT Height 175.3 cm (5' 9.02) 11/01/2024 7:00 PM CS T Body Mass Index 27.64 11/01/2024 7:00 PM SQUAD SERGEANT Plan of Treatment Health Maintenance Due Date Last Done Comments COLOGUARD (AGES 45-75) - COLON CA SCREENING 1965 COLON MONITORING 1965 COLONOSCOPY - COLON CA SCREENING 1963 CT COLONOGRAPHY - COLON CA SCREENING 1965 Colorectal Cancer Screening 1965 FIT - COLON CA SCREENING 1965 FLEX SIG - COLON CA SCREENING 1963 HIV SCREENING 1978 HEPATITIS C SCREENING 07/18/1981 DTAP/TDAP/TD VACCINES (1 - Tdap) 1982 PNEUMOCOCCAL VACCINE 50+ (1 of 2 - PCV) 1982 ZOSTER VACCINE (1 of 2) 2013 COVID-19 VACCINE ( - season) 2024 DIABETES RETINOPATHY SCREENING 11/03/2024 DIABETES-FOOT EXAM WITH MONOFILAMENT 11/03/2024 DEPRESSION SCREENING 11/21/2024 DIABETES - URINE PROTEIN SCREENING 11/21/2024 DIABETES-HGB A1C 05/07/2025 11/06/2024, 08/13/2024 INFLUENZA VACCINE (Season Ended) 2025 DIABETES-SERUM CREATININE 11/06/20252023, 11/02/2024, 11/01/2024, Additional history exists Respiratory Syncytial Virus (RSV) Vaccine Pt: or over 60 yrs (1 - 1-dose 75+ series) 2038 HEPATITIS B VACCINE Aged Out No longe r eligible based on patient's age to complete this topic HIB VACCINE Aged Out No longer eligi ble based on patient's age to complete this topic HPV VACCINE Aged Out No longer eligi ble based on patient's age to complete this topic MENINGOCOCCAL (Group B) VACCINE SHARED DECISION-MAKING Aged Out No longer eligible based on patient's age to complete this topic MENINGOCOCCAL GROUPS A/C/Y/W VACCINE Aged Out No longer eligible based on patient's age to complete this topic Procedures Procedure Name Priority Date/Time Associated Diagnosis Comments RENAL FUNCTION PANEL AM Draw 11/02/2024 1:12 AM SQUAD SERGEANT from Last 3 Months or Most Recently Relevant to Health Maintenance Results * (ABNORMAL) RENAL FUNCTION PANEL (11/02/2024 1:12 AM SQUAD SERGEANT) BUN 18 7 - 26 mg/dL 11/02/2024 2:39 AM [facility] Creatinine 1.14 0.71 - 1.16 mg/dL 11/02/2024 2:39 AM [facility] Sodium 141 136 - 145 mmol/L 11/02/2024 2:39 AM [facility] Potassium 4.3 3.5 - 4.5 mmol/L 11/02/2024 2:39 AM [facility] Chloride 109(H) 98 - 107 mmol/L 11/02/2024 2:39 AM [facility] CO2 22 22 - 29 mmol/L 11/02/2024 2:39 AM [facility] Glucose 118(H) 70 - 99 mg/dL 11/02/2024 2:39 AM [facility] Albumin 3.2(L) 3.4 - 5.0 g/dL 11/02/2024 2:39 AM [facility] Calcium 8.7 8.4 - 10.2 mg/dL 11/02/2024 2:39 AM [facility] Phosphorus 4.4 2.8 - 5.1 mg/dL 11/02/2024 2:39 AM [facility] Anion Gap 10 6 - 16 11/02/2024 2:39 AM [facility] BUN/Creatinine Ratio 16 7 - 23 11/02/2024 2:39 AM [facility] Osmolality Calculated 295 275 - 295 mOsm/kg 11/02/2024 2:39 AM [facility] eGFR by CKD-EPI 73(L) >=90 mL/min/1.7 3 m2 11/02/2024 2:39 AM [facility] Blood BLOOD SPECIMEN / Unknown Lab Venipuncture / Unknown 11/02/2024 1:12 AM SQUAD SERGEANT 11/02/2024 2:11 AM SQUAD SERGEANT us Rebeca Goodson MD LAB - CHEMISTRY ORDERABLES Fi nal Result [id number] [place] [address], [facility] [phone] from Last 3 Months or Most Recently Relevant to Health Maintenance Insurance [facility] Advance Directives * Full Code (Latest Code Status on File) Date Activated Date Inactivated Comments 11/01/2024 5:39 AM 11/02/2024 7:02 PM
== END ==
LOC: ANHLAB 15:19
PROVIDERS: Visit Provider Plastic Surgery
DX: L72.3 Sebaceous cyst (principal)
CPT/HCPCS: 88305